=== PATIENT | female | born 1985 ===

== ENCOUNTER 2018-12-03 21:44 | Emergency (ER) | payer SELFPAY ==
--- NOTE | 2018-12-03 22:15 | Event Note ---
ED Screening Note Date of service: 12/03/18 Time: 22:13 ED Screening Note: This is a 33 y.o. F. that presents to the ER with sore throat since yesterday. Patient states she was recently treated for Strep throat 3 weeks ago and think it returned. This initial assessment/diagnostic orders/clinical plan/treatment(s) is/are subject to change based on patients health status, clinical progression and re- assessment by fellow clinical providers in the ED. Further treatment and workup at subsequent clinical providers discretion. Patient/guardian urged not to elope from the ED as their condition may be serious if not clinically assessed and managed. Initial orders include: Rapid strep
[2018-12-04] MEDS ORDERED: DECADRON IM ONE (00:52)
[2018-12-04] MEDS ORDERED: CLEOCIN PO ONE (00:52)
[2018-12-04] MEDS ORDERED: ULTRAM PO ONE (00:52)
--- NOTE | 2018-12-04 01:11 | Emergency Department Report ---
ED ENT HPI - General Chief complaint: Sore Throat Stated complaint: THROAT PAIN Time Seen by Provider: 12/03/18 22:12 Source: patient Mode of arrival: Ambulatory Limitations: No Limitations - History of Present Illness Initial comments: Patient presents for continued to treat for pharyngitis last week with Keflex states symptoms not improving Pain is 4/10 exacerbated by swallowing symptoms are relieved by nothing there is no swelling no deformity no ear mastering plan change antibiotics clindamycin ibuprofen when necessary pain following ENT patient verbalized agreement and understanding of same MD complaint: sore throat Onset/Timin -: week(s) Location: throat Severity: moderate Severity scale (0 -10): 5 Quality: stabbing, sharp Consistency: constant Improves with: none Worsens with: swallowing Associated Symptoms: sore throat - Related Data Previous Rx's Medication Instructions Recorded Last Taken Type Benzocaine/Mentho [Cepacol X 1 each MM Q2H PRN #3 packet 12/04/18 Unknown Rx Strength] Clindamycin [Clindamycin CAP] 300 mg PO Q8H 10 Days #30 cap 12/04/18 Unknown Rx traMADol [Ultram] 50 mg PO Q4HR PRN #12 tablet 12/04/18 Unknown Rx Allergies Allergy/AdvReac Type Severity Reaction Status Date / Time latex Allergy Unknown Verified 12/03/18 21:48 Penicillins Allergy Unknown Verified 12/03/18 21:48 ED Dental HPI - General Chief complaint: Sore Throat Stated complaint: THROAT PAIN Time Seen by Provider: 12/03/18 22:12 Source: patient Mode of arrival: Ambulatory Limitations: No Limitations - Related Data Previous Rx's Medication Instructions Recorded Last Taken Type Benzocaine/Mentho [Cepacol X 1 each MM Q2H PRN #3 packet 12/04/18 Unknown Rx Strength] Clindamycin [Clindamycin CAP] 300 mg PO Q8H 10 Days #30 cap 12/04/18 Unknown Rx traMADol [Ultram] 50 mg PO Q4HR PRN #12 tablet 12/04/18 Unknown Rx Allergies Allergy/AdvReac Type Severity Reaction Status Date / Time latex Allergy Unknown Verified 12/03/18 21:48 Penicillins Allergy Unknown Verified 12/03/18 21:48 ED Review of Systems ROS: Stated complaint: THROAT PAIN Other details as noted in HPI Constitutional: denies: chills, fever Eyes: denies: eye pain, eye discharge, vision change ENT: denies: ear pain, throat pain Respiratory: denies: cough, orthopnea, shortness of breath, wheezing Cardiovascular: denies: chest pain Endocrine: no symptoms reported Gastrointestinal: denies: abdominal pain, nausea, diarrhea Genitourinary: denies: urgency, dysuria, discharge Musculoskeletal: denies: back pain, joint swelling, arthralgia Skin: denies: rash, lesions Neurological: denies: headache, weakness, paresthesias Psychiatric: denies: anxiety, depression Hematological/Lymphatic: denies: easy bleeding, easy bruising ED Past Medical Hx - Past Medical History Previous Medical History?: No - Surgical History Past Surgical History?: Yes Additional Surgical History: abdominal myomectomy - Social History Smoking Status: Never Smoker Substance Use Type: None - Medications Home Medications: Home Medications Medication Instructions Recorded Confirmed Last Taken Type Benzocaine/Mentho [Cepacol X 1 each MM Q2H PRN #3 packet 12/04/18 Unknown Rx Strength] Clindamycin [Clindamycin CAP] 300 mg PO Q8H 10 Days #30 cap 12/04/18 Unknown Rx traMADol [Ultram] 50 mg PO Q4HR PRN #12 tablet 12/04/18 Unknown Rx ED Physical Exam - General Limitations: No Limitations General appearance: alert, in no apparent distress - Head Head exam: Present: atraumatic, normocephalic - Eye Eye exam: Present: normal appearance, PERRL, EOMI Pupils: Present: normal accommodation - ENT ENT exam: Present: mucous membranes moist, TM's normal bilaterally, normal external ear exam - Expanded ENT Exam Expanded Ear exam: Present: normal external inspection. Absent: auricular hematoma Mouth exam: Absent: drooling, trismus Throat exam: Positive: tonsillar erythema, tonsillomegaly, tonsillar exudate, other. Negative: R peritonsillar mass, L peritonsillar mass - Neck Neck exam: Present: normal inspection, tenderness, full ROM. Absent: meningismus, lymphadenopathy, thyromegaly - Expanded Neck Exam Expanded Neck exam: Absent: tenderness, midline deformity, anterior neck swelling, thyroid mass, carotid bruit, tracheal deviation - Respiratory Respiratory exam: Present: normal lung sounds bilaterally. Absent: respiratory distress, wheezes, rhonchi, chest wall tenderness - Cardiovascular Cardiovascular Exam: Present: regular rate, normal rhythm, normal heart sounds. Absent: systolic murmur, diastolic murmur, rubs, gallop - GI/Abdominal GI/Abdominal exam: Present: soft, normal bowel sounds. Absent: distended, tenderness, guarding, rebound, rigid, bruit, hernia - Rectal Rectal exam: Present: deferred - Extremities Exam Extremities exam: Present: normal inspection, full ROM, normal capillary refill, joint swelling. Absent: tenderness - Back Exam Back exam: Present: normal inspection, full ROM. Absent: tenderness, CVA tenderness (R), CVA tenderness (L), muscle spasm, paraspinal tenderness, rash noted - Neurological Exam Neurological exam: Present: alert, oriented X3, CN II-XII intact, normal gait, reflexes normal - Psychiatric Psychiatric exam: Present: normal affect, normal mood - Skin Skin exam: Present: warm, dry, intact, normal color. Absent: rash ED Medical Decision Making - Medical Decision Making This is pharyngitis plan , Bite to clindamycin Ultram when necessary pain , airway is patent no , Cepacol follow up with Dr lindsey ENT follow up with pcp in t2-3 days Critical care attestation.: If time is entered above; I have spent that time in minutes in the direct care of this critically ill patient, excluding procedure time. ED Disposition Clinical Impression: Pharyngitis Qualifiers: Pharyngitis/tonsillitis etiology: unspecified etiology Qualified Code(s): J02.9 - Acute pharyngitis, unspecified Disposition: TO HOME OR SELFCARE Is pt being admited?: No Does the pt Need Aspirin: No Condition: Stable Instructions: Pharyngitis (ED) Prescriptions: Benzocaine/Mentho [Cepacol X Strength] 1 each MM Q2H PRN #3 packet PRN Reason: throat pain Clindamycin [Clindamycin CAP] 300 mg PO Q8H 10 Days #30 cap traMADol [Ultram] 50 mg PO Q4HR PRN #12 tablet PRN Reason: Pain [facility] [Primary Care Provider] - 3-5 Days SARA LINDSEY MD [Staff Physician] - 3-5 Days Forms: Work/School Release Form(ED) Time of Disposition: :19
[2018-12-04 01:47] VITALS: BP 122/68
== END 2018-12-04 01:46 | disposition home or self-care (01) ==
LOC: ED 21:44
DX: J02.9 Acute pharyngitis, unspecified (principal); Z91.040 Latex allergy status; Z88.0 Allergy status to penicillin
CPT/HCPCS: 87116; 87430; 96372; 99283; J1100